=== PATIENT | female | born 1970 | race Caucasian/White ===

== ENCOUNTER 2017-09-29 23:11 | Emergency (ER) | payer SELFPAY ==
[~2017-09-29] VITALS: Ht 157.5 cm; Wt 75.0 kg
[2017-09-30] MEDS ORDERED: BACITRACIN ZINC OINT UDPKT TOP ONE (03:30)
[2017-09-30] MEDS ORDERED: LIDOCAINE HCL 1%/EPI 1:200,000 30 ML VIAL MC ONE (03:30)
[2017-09-30] MEDS ORDERED: TETANUS, DIPHTHERIA, PERTUSSIS VAC/PF 0.5ML (>7YR OLD) IM ONE (03:30)
[2017-09-30] MEDS ORDERED: LIDOCAINE HCL 1%/EPI 1:200,000 30 ML VIAL MC SCH (04:00)
[2017-09-30 05:12] VITALS: BP 134/83
== END 2017-09-30 05:20 | disposition home or self-care (01) ==
LOC: ER 23:30
DX: S51.811A Laceration without foreign body of right forearm, initial encounter (principal); Y93.39 Activity, other involving climbing, rappelling and jumping off; Y93.89 Activity, other specified; Y92.017 Garden or yard in single-family (private) house as the place of occurrence of the external cause; Z87.19 Personal history of other diseases of the digestive system; F17.210 Nicotine dependence, cigarettes, uncomplicated
CPT/HCPCS: 12004; 90471; 90715; 99283; X7700; Z7610